=== PATIENT | female | born 1980 | race Caucasian/White ===

== ENCOUNTER → 2022-02-23 | Outpatient (CLI) | payer SELFPAY ==
[~2022-02-23] VITALS: Ht 162.6 cm; Wt 80.0 kg
[~2022-02-23] MED LIST: SERTRALINE HCL200 MG PO; VERAPAMIL 440 MG/TAB PO; WELLBUTRIN SR150 M3 PO
[2022-02-23 17:50] VITALS: BP 127/86
== END ==
LOC: AMSURD 17:34
DX: D50.9 Iron deficiency anemia, unspecified (principal)
CPT/HCPCS: J1756

== ENCOUNTER 2022-05-20 09:21 | Outpatient (RCR) | payer OTHER ==
[~2022-05-20] VITALS: Ht 162.6 cm; Wt 80.0 kg
[2022-05-20 09:44] VITALS: BP 131/82
== END 2022-05-24 | disposition home or self-care (01) ==
LOC: AMSURD
DX: E61.1 Iron deficiency (principal)
CPT/HCPCS: J1756

== ENCOUNTER 2022-05-28 14:18 | Outpatient (RCR) | payer OTHER ==
[~2022-05-28] VITALS: Ht 162.6 cm; Wt 80.0 kg
== END 2022-06-24 | disposition home or self-care (01) ==
LOC: AMSURD
DX: E61.1 Iron deficiency (principal)
CPT/HCPCS: J1756

== ENCOUNTER 2023-01-06 19:35 | Outpatient (RCR) | payer OTHER ==
[2022-12-25 19:21] VITALS: BP 133/85
[~2023-01-06] VITALS: Ht 162.6 cm; Wt 80.0 kg
[2023-01-06 20:21] VITALS: BP 136/90
== END 2023-01-22 | disposition home or self-care (01) ==
LOC: AMSURD
DX: D50.9 Iron deficiency anemia, unspecified (principal)
CPT/HCPCS: J1756

== ENCOUNTER → 2023-07-05 | Outpatient (CLI) | payer OTHER | LOC: AMSURD 17:06 | DX: D50.9 Iron deficiency anemia, unspecified (principal) ==